=== PATIENT | female | born 1940 | race Caucasian/White ===

== ENCOUNTER → 2017-12-15 | Outpatient (CLI) | payer OTHER | LOC: CFH 08:40 | PROVIDERS: ATTEND Family Medicine | DX: R05 Cough (principal) | CPT/HCPCS: 71046 ==

== ENCOUNTER → 2018-03-15 | Outpatient (CLI) | payer OTHER | END | disposition home or self-care (01) | LOC: CFH 08:49 | PROVIDERS: ATTEND Internal Medicine Critical Care Medicine | DX: I71.2 Thoracic aortic aneurysm, without rupture (principal); I34.8 Other nonrheumatic mitral valve disorders | CPT/HCPCS: 71250 ==

== ENCOUNTER 2018-05-23 06:08 | Emergency (ER) | payer OTHER ==
[~2018-05-23] VITALS: Ht 160 cm; Wt 116.8 kg
[2018-05-23 07:02] LABS: BASOPHILS # (AUTO) 0.03 x10^3/uL (0-0.1); BASOPHILS % (AUTO) 0 % (0-1); EOSINOPHILS % (AUTO) 1 % (1-7); LYMPHOCYTES # (AUTO) 1.38 x10^3/uL (1-3.4); LYMPHOCYTES % (AUTO) 16 % (22-44); MD NO; MEAN CORPUSCULAR HGB CONC 32.8 g/dL (32.4-35.8); MEAN CORPUSCULAR VOLUME 91.4 fL (80-100); MEAN PLATELET VOLUME 9.8 fL (7.4-10.4); MONOCYTES # (AUTO) 0.66 x10^3/uL (0.2-0.8); MONOCYTES % (AUTO) 8 % (2-9); NEUTROPHILS # (AUTO) 6.57 x10^3/uL (1.8-6.8); NEUTROPHILS % (AUTO) 75 % (42-75); PLATELET COUNT 255 x10^3/uL (130-400); RED BLOOD COUNT 4.88 x10^6/uL (3.82-5.3); RED CELL DISTRIBUTION WIDTH 14.8 % (9.6-15.2)
[2018-05-23 07:10] VITALS: BP 147/81
[2018-05-23 07:14] LABS: ALANINE AMINOTRANSFERASE 27 U/L (12-78); ALBUMIN 3.7 g/dL (3.4-5.0); ANION GAP 8 mmol/L (5-15); CALCIUM 10.4 mg/dL (8.5-10.1); CHLORIDE 109 mmol/L (98-107)
[2018-05-23 07:24] LABS: ALKALINE PHOSPHATASE 56 U/L (45-117); BILIRUBIN,TOTAL 0.5 mg/dL (0.2-1.0); TOTAL PROTEIN 7.3 g/dL (6.4-8.2)
[2018-05-23] MEDS ORDERED: PINK LADY ENEMA 490 ML BOTTLE PR ONE (07:30)
== END 2018-05-23 08:30 | disposition home or self-care (01) ==
LOC: ED 08:23
DX: K59.00 Constipation, unspecified (principal); E66.9 Obesity, unspecified; Z88.2 Allergy status to sulfonamides
CPT/HCPCS: 36415; 74021; 80053; 84443; 85025; 99285

== ENCOUNTER 2018-07-07 17:39 | Inpatient (IN) | payer OTHER ==
[~2018-07-07] VITALS: Ht 160 cm; Wt 111.4 kg
[2018-07-07 18:22] LABS: BASOPHILS # (AUTO) 0.06 x10^3/uL (0-0.1); BASOPHILS % (AUTO) 1 % (0-1); EOSINOPHILS # (AUTO) 0.21 x10^3/uL (0-0.4); EOSINOPHILS % (AUTO) 2 % (1-7); LYMPHOCYTES # (AUTO) 1.78 x10^3/uL (1-3.4); LYMPHOCYTES % (AUTO) 16 % (22-44); MD NO; MEAN CORPUSCULAR HEMOGLOBIN 30.5 pg (27.0-34.8); MEAN CORPUSCULAR HGB CONC 33.3 g/dL (32.4-35.8); MEAN CORPUSCULAR VOLUME 91.7 fL (80-100); MEAN PLATELET VOLUME 10.1 fL (7.4-10.4); MONOCYTES # (AUTO) 0.99 x10^3/uL (0.2-0.8); MONOCYTES % (AUTO) 9 % (2-9); NEUTROPHILS # (AUTO) 8.28 x10^3/uL (1.8-6.8); NEUTROPHILS % (AUTO) 73 % (42-75); PLATELET COUNT 228 x10^3/uL (130-400); RED BLOOD COUNT 4.42 x10^6/uL (3.82-5.3); RED CELL DISTRIBUTION WIDTH 15.4 % (9.6-15.2)
[2018-07-07] MEDS ORDERED: ASPIRIN 81 MG TABLET CHEW PO ONE (18:30)
[2018-07-07] MEDS ORDERED: SODIUM CHLORIDE 0.9% 1,000ML IVBOLUS ONE (18:30)
[2018-07-07] MEDS ORDERED: ASPIRIN 81 MG TABLET CHEW ONE (18:31)
[2018-07-07 18:34] LABS: ALANINE AMINOTRANSFERASE 52 U/L (12-78); ALBUMIN 3.3 g/dL (3.4-5.0); ANION GAP 12 mmol/L (5-15); CALCIUM 10.2 mg/dL (8.5-10.1); CHLORIDE 105 mmol/L (98-107); CREATININE 2.06 mg/dL (0.55-1.02)
[2018-07-07 18:37] LABS: ALKALINE PHOSPHATASE 45 U/L (45-117); BILIRUBIN,TOTAL 0.6 mg/dL (0.2-1.0); TOTAL PROTEIN 6.4 g/dL (6.4-8.2); TROPONIN I 0.034 ng/mL (0.000-0.045)
[2018-07-07] MEDS ORDERED: CHOL200074 PO (19:41)
[2018-07-07] MEDS ORDERED: POLY17PO5 PO (19:41)
[2018-07-07] MEDS ORDERED: SERT25TA3 PO (19:41)
[2018-07-07] MEDS ORDERED: LISI40TA PO (19:41)
[2018-07-07] MEDS ORDERED: SENN1TAB8 PO (19:41)
[2018-07-07] MEDS ORDERED: MIRA25TA PO (19:41)
[2018-07-07] MEDS ORDERED: MULT-658 PO (19:41)
[2018-07-07] MEDS ORDERED: DOCU-131 PO (19:41)
[2018-07-07] MEDS ORDERED: RANI150C PO (19:41)
[2018-07-07] MEDS ORDERED: FLUT1DIS3 INH (19:41)
[2018-07-07] MEDS ORDERED: LEVO200T5 PO (19:41)
[2018-07-07] MEDS ORDERED: ACET325T14 PO (19:41)
[2018-07-07] MEDS ORDERED: AMOX875T PO (19:41)
[2018-07-07] MEDS ORDERED: LORA-445 PO (19:41)
[2018-07-07] MEDS ORDERED: AMLO2.5T3 PO (19:41)
[2018-07-07] MEDS ORDERED: METF500T17 PO (19:41)
[2018-07-07] MEDS ORDERED: HYDR25TA6 PO (19:41)
[2018-07-07] MEDS ORDERED: FURO-93 PO (19:41)
[2018-07-07 20:36] LABS: MICROSCOPIC INDICATED
[2018-07-07 20:45] LABS: CULTURE INDICATED? YES
[2018-07-07] MEDS ORDERED: CEFTRIAXONE PMX 1GM/50ML 50 ML ONE (21:18)
[2018-07-07] MEDS ORDERED: LORazepam 0.5MG TABLET ONE (21:24)
[2018-07-07] MEDS ORDERED: CEFTRIAXONE 1,000 MG IV ONE (21:30)
[2018-07-07] MEDS ORDERED: LORazepam 0.5MG TABLET PO ONE (21:30)
[2018-07-07] MEDS ORDERED: CEFTRIAXONE 1,000 MG in SODIUM CHLORIDE 0.9% 50 ML IVPB ONE (21:30)
[2018-07-07] MEDS ORDERED: ONDANSETRON 2MG/ML, 2ML IVPush PRN (22:00)
[2018-07-07] MEDS ORDERED: POTASSIUM CHLORIDE 20 MEQ TAB.ER.PRT PO ONE (22:00)
[2018-07-07] MEDS ORDERED: BISACODYL 10 MG SUPP PR PRN (22:00)
[2018-07-07] MEDS ORDERED: hydrALAzine 20 MG/ML, 1ML IVPush PRN (22:00)
[2018-07-07] MEDS ORDERED: ACETAMINOPHEN 325 MG TABLET PO PRN (22:00)
[2018-07-07] MEDS ORDERED: POLYETHYLENE GLYCOL 17 GM PACKET PO PRN (22:00)
[2018-07-07] MEDS: INSULIN LISPRO 100 UNITS/ML, PEN SQ-INSULIN SCH (22:17)
[2018-07-07 22:19] LABS: HEMOGLOBIN A1C 6.9 % (4.2-6.3)
[2018-07-07] MEDS: CEFTRIAXONE 1,000 MG in SODIUM CHLORIDE 0.9% 50 ML IV SCH (22:40)
[2018-07-07] MEDS: HEPARIN 5,000 UNITS/ML, 1ML SQ SCH (22:40)
[2018-07-07] MEDS: AMLODIPINE 2.5 MG TABLET PO SCH (22:41)
[2018-07-07] MEDS: NS + 20MEQ KCL 1,000 ML IV SCH (22:41)
[2018-07-07] MEDS: FAMOTIDINE 20 MG TABLET PO SCH (22:43)
[2018-07-08 00:48] VITALS: BP 115/62
[2018-07-08 06:13] LABS: BASOPHILS # (AUTO) 0.04 x10^3/uL (0-0.1); BASOPHILS % (AUTO) 1 % (0-1); EOSINOPHILS # (AUTO) 0.29 x10^3/uL (0-0.4); EOSINOPHILS % (AUTO) 3 % (1-7); LYMPHOCYTES # (AUTO) 1.41 x10^3/uL (1-3.4); LYMPHOCYTES % (AUTO) 17 % (22-44); MD NO; MEAN CORPUSCULAR HEMOGLOBIN 30.8 pg (27.0-34.8); MEAN CORPUSCULAR HGB CONC 33.5 g/dL (32.4-35.8); MEAN CORPUSCULAR VOLUME 92.1 fL (80-100); MEAN PLATELET VOLUME 10.4 fL (7.4-10.4); MONOCYTES # (AUTO) 0.86 x10^3/uL (0.2-0.8); MONOCYTES % (AUTO) 10 % (2-9); NEUTROPHILS # (AUTO) 5.82 x10^3/uL (1.8-6.8); NEUTROPHILS % (AUTO) 69 % (42-75); PLATELET COUNT 191 x10^3/uL (130-400); RED BLOOD COUNT 4.23 x10^6/uL (3.82-5.3); RED CELL DISTRIBUTION WIDTH 15.7 % (9.6-15.2)
[2018-07-08 06:15] LABS: ALANINE AMINOTRANSFERASE 48 U/L (12-78); ANION GAP 10 mmol/L (5-15); CALCIUM 9.8 mg/dL (8.5-10.1); CHLORIDE 110 mmol/L (98-107)
[2018-07-08 06:17] LABS: ALKALINE PHOSPHATASE 44 U/L (45-117); BILIRUBIN,TOTAL 0.3 mg/dL (0.2-1.0); TOTAL PROTEIN 6.2 g/dL (6.4-8.2)
[2018-07-08] MEDS: NS + 20MEQ KCL 1,000 ML IV SCH ×2 (06:20→20:38)
[2018-07-08] MEDS: HEPARIN 5,000 UNITS/ML, 1ML SQ SCH ×3 (06:20→21:54)
[2018-07-08] MEDS: ASPIRIN 81 MG TABLET EC PO SCH (06:20)
[2018-07-08 06:48] VITALS: BP 132/90
[2018-07-08] MEDS: INSULIN LISPRO 100 UNITS/ML, PEN SQ-INSULIN SCH ×4 (07:00→20:44)
[2018-07-08] MEDS: SENNA/DOCUSATE TABLET PO SCH (09:00)
[2018-07-08] MEDS: TEMPLATE NON-FORMULARY MED. (Mirabegron** (Myrbetriq**) 25 MG) PO SCH (09:00)
[2018-07-08] MEDS: FLUTICASONE/VILANTEROL 100-25MCG/INH INH SCH (09:00)
[2018-07-08] MEDS: FAMOTIDINE 20 MG TABLET PO SCH ×2 (11:22→20:47)
[2018-07-08] MEDS: MULTIVITAMIN 1 TABLET PO SCH (11:22)
[2018-07-08] MEDS: SERTRALINE 50MG TABLET PO SCH (11:23)
[2018-07-08] MEDS: CHOLECALCIFEROL 1,000 UNIT TABLET PO SCH (11:23)
[2018-07-08] MEDS: LEVOTHYROXINE 200 MCG TABLET PO SCH (11:23)
[2018-07-08 15:00] VITALS: BP 142/74
[2018-07-08] MEDS: HALOPERIDOL 5 MG TABLET PO PRN (16:48)
[2018-07-08 20:13] VITALS: BP 117/59
[2018-07-08] MEDS: AMLODIPINE 2.5 MG TABLET PO SCH (20:47)
[2018-07-08] MEDS: CEFTRIAXONE 1,000 MG in SODIUM CHLORIDE 0.9% 50 ML IV SCH (21:53)
[2018-07-09 00:53] VITALS: BP 111/66
[2018-07-09] MEDS: NS + 20MEQ KCL 1,000 ML IV SCH ×3 (05:15→20:38)
[2018-07-09] MEDS: LEVOTHYROXINE 200 MCG TABLET PO SCH (05:23)
[2018-07-09] MEDS: HEPARIN 5,000 UNITS/ML, 1ML SQ SCH ×3 (05:23→22:30)
[2018-07-09] MEDS: ASPIRIN 81 MG TABLET EC PO SCH (05:24)
[2018-07-09] MEDS: INSULIN LISPRO 100 UNITS/ML, PEN SQ-INSULIN SCH ×4 (07:00→20:09)
[2018-07-09 07:11] VITALS: BP 147/75
[2018-07-09] MEDS: TEMPLATE NON-FORMULARY MED. (Mirabegron** (Myrbetriq**) 25 MG) PO SCH (08:01)
[2018-07-09] MEDS: CHOLECALCIFEROL 1,000 UNIT TABLET PO SCH (08:44)
[2018-07-09] MEDS: FAMOTIDINE 20 MG TABLET PO SCH ×2 (08:44→20:38)
[2018-07-09] MEDS: MULTIVITAMIN 1 TABLET PO SCH (08:44)
[2018-07-09] MEDS: SENNA/DOCUSATE TABLET PO SCH (08:44)
[2018-07-09] MEDS: SERTRALINE 50MG TABLET PO SCH (08:48)
[2018-07-09] MEDS: FLUTICASONE/VILANTEROL 100-25MCG/INH INH SCH (08:52)
[2018-07-09 12:14] VITALS: BP 131/73
[2018-07-09 19:24] VITALS: BP 136/75
[2018-07-09] MEDS: HALOPERIDOL 5 MG TABLET PO PRN (20:38)
[2018-07-09] MEDS: AMLODIPINE 2.5 MG TABLET PO SCH (20:38)
[2018-07-09] MEDS ORDERED: LORazepam 1MG TABLET ONE (22:56)
[2018-07-09] MEDS ORDERED: LORazepam 1MG TABLET PO ONE (23:00)
[2018-07-10 01:25] VITALS: BP 154/83
[2018-07-10] MEDS: HALOPERIDOL 5 MG TABLET PO PRN ×3 (02:03→22:01)
[2018-07-10] MEDS: NS + 20MEQ KCL 1,000 ML IV SCH ×3 (04:38→19:10)
[2018-07-10] MEDS: HEPARIN 5,000 UNITS/ML, 1ML SQ SCH ×3 (05:17→19:10)
[2018-07-10] MEDS: ASPIRIN 81 MG TABLET EC PO SCH (05:17)
[2018-07-10] MEDS: LEVOTHYROXINE 200 MCG TABLET PO SCH (05:17)
[2018-07-10 07:06] VITALS: BP 166/89
[2018-07-10] MEDS: INSULIN LISPRO 100 UNITS/ML, PEN SQ-INSULIN SCH ×4 (08:11→19:45)
[2018-07-10] MEDS: TEMPLATE NON-FORMULARY MED. (Mirabegron** (Myrbetriq**) 25 MG) PO SCH (08:11)
[2018-07-10] MEDS: FLUTICASONE/VILANTEROL 100-25MCG/INH INH SCH (08:11)
[2018-07-10] MEDS: CHOLECALCIFEROL 1,000 UNIT TABLET PO SCH (08:18)
[2018-07-10] MEDS: SENNA/DOCUSATE TABLET PO SCH (08:18)
[2018-07-10] MEDS: LEVOFLOXACIN 750 MG TABLET PO SCH (08:18)
[2018-07-10] MEDS: MULTIVITAMIN 1 TABLET PO SCH (08:18)
[2018-07-10] MEDS: SERTRALINE 50MG TABLET PO SCH (08:18)
[2018-07-10] MEDS: FAMOTIDINE 20 MG TABLET PO SCH ×2 (08:18→19:45)
[2018-07-10 12:29] VITALS: BP 161/79
[2018-07-10] MEDS: LORazepam 0.5MG TABLET PO PRN ×2 (13:20→19:45)
[2018-07-10 19:25] VITALS: BP 151/80
[2018-07-10] MEDS: AMLODIPINE 2.5 MG TABLET PO SCH (19:45)
[2018-07-11] MEDS: NS + 20MEQ KCL 1,000 ML IV SCH ×2 (02:28→21:30)
[2018-07-11 03:37] VITALS: BP 149/85
[2018-07-11] MEDS: ASPIRIN 81 MG TABLET EC PO SCH (05:05)
[2018-07-11] MEDS: LEVOTHYROXINE 200 MCG TABLET PO SCH (05:05)
[2018-07-11] MEDS: HEPARIN 5,000 UNITS/ML, 1ML SQ SCH ×3 (05:08→21:29)
[2018-07-11 07:01] VITALS: BP 147/55
[2018-07-11] MEDS: SERTRALINE 50MG TABLET PO SCH (08:09)
[2018-07-11] MEDS: CHOLECALCIFEROL 1,000 UNIT TABLET PO SCH (08:09)
[2018-07-11] MEDS: FAMOTIDINE 20 MG TABLET PO SCH ×2 (08:09→21:29)
[2018-07-11] MEDS: LEVOFLOXACIN 750 MG TABLET PO SCH (08:09)
[2018-07-11] MEDS: MULTIVITAMIN 1 TABLET PO SCH (08:09)
[2018-07-11] MEDS: FLUTICASONE/VILANTEROL 100-25MCG/INH INH SCH (08:10)
[2018-07-11] MEDS: TEMPLATE NON-FORMULARY MED. (Mirabegron** (Myrbetriq**) 25 MG) PO SCH (08:10)
[2018-07-11] MEDS: SENNA/DOCUSATE TABLET PO SCH (08:10)
[2018-07-11] MEDS: INSULIN LISPRO 100 UNITS/ML, PEN SQ-INSULIN SCH ×4 (08:13→21:00)
[2018-07-11 09:26] LABS: ANION GAP 9 mmol/L (5-15); CALCIUM 9.7 mg/dL (8.5-10.1); CHLORIDE 109 mmol/L (98-107); CREATININE 0.88 mg/dL (0.55-1.02)
[2018-07-11 09:39] LABS: BASOPHILS # (AUTO) 0.04 x10^3/uL (0-0.1); BASOPHILS % (AUTO) 0 % (0-1); EOSINOPHILS # (AUTO) 0.13 x10^3/uL (0-0.4); EOSINOPHILS % (AUTO) 1 % (1-7); LYMPHOCYTES # (AUTO) 0.89 x10^3/uL (1-3.4); LYMPHOCYTES % (AUTO) 9 % (22-44); MD NO; MEAN CORPUSCULAR HEMOGLOBIN 30.5 pg (27.0-34.8); MEAN CORPUSCULAR HGB CONC 33.2 g/dL (32.4-35.8); MEAN CORPUSCULAR VOLUME 91.7 fL (80-100); MEAN PLATELET VOLUME 10.3 fL (7.4-10.4); MONOCYTES # (AUTO) 0.53 x10^3/uL (0.2-0.8); MONOCYTES % (AUTO) 5 % (2-9); NEUTROPHILS # (AUTO) 8.93 x10^3/uL (1.8-6.8); NEUTROPHILS % (AUTO) 85 % (42-75); PLATELET COUNT 198 x10^3/uL (130-400); RED BLOOD COUNT 4.44 x10^6/uL (3.82-5.3); RED CELL DISTRIBUTION WIDTH 15.4 % (9.6-15.2)
[2018-07-11] MEDS ORDERED: MAGNESIUM SULFATE 4 GM in SODIUM CHLORIDE 0.9% 100 ML IV ONE (12:00)
[2018-07-11 15:06] VITALS: BP 150/74
[2018-07-11] MEDS: LORazepam 0.5MG TABLET PO PRN ×2 (16:14→21:29)
[2018-07-11 19:40] VITALS: BP 132/77
[2018-07-11 20:24] LABS: TROPONIN I 0.018 ng/mL (0.000-0.045)
[2018-07-11] MEDS: AMLODIPINE 2.5 MG TABLET PO SCH (21:29)
[2018-07-12 01:17] VITALS: BP 129/82
[2018-07-12 01:25] VITALS: BP 129/82
[2018-07-12] MEDS: LORazepam 0.5MG TABLET PO PRN ×3 (01:57→22:26)
[2018-07-12 04:01] LABS: TROPONIN I 0.016 ng/mL (0.000-0.045)
[2018-07-12] MEDS: LEVOTHYROXINE 200 MCG TABLET PO SCH (05:27)
[2018-07-12] MEDS: ASPIRIN 81 MG TABLET EC PO SCH (05:27)
[2018-07-12] MEDS: NS + 20MEQ KCL 1,000 ML IV SCH ×3 (05:27→21:30)
[2018-07-12] MEDS: HEPARIN 5,000 UNITS/ML, 1ML SQ SCH ×3 (05:27→22:28)
[2018-07-12 06:50] VITALS: BP 155/77
[2018-07-12] MEDS: INSULIN LISPRO 100 UNITS/ML, PEN SQ-INSULIN SCH ×4 (07:00→21:00)
[2018-07-12] MEDS: TEMPLATE NON-FORMULARY MED. (Mirabegron** (Myrbetriq**) 25 MG) PO SCH (09:00)
[2018-07-12] MEDS ORDERED: POTASSIUM CHLORIDE 20 MEQ TAB.ER.PRT PO ONE (09:00)
[2018-07-12] MEDS ORDERED: FUROSEMIDE 40 MG/4 ML IV ONE (09:00)
[2018-07-12] MEDS: SENNA/DOCUSATE TABLET PO SCH (09:09)
[2018-07-12] MEDS: MULTIVITAMIN 1 TABLET PO SCH (09:09)
[2018-07-12] MEDS: FAMOTIDINE 20 MG TABLET PO SCH ×2 (09:09→22:28)
[2018-07-12] MEDS: LEVOFLOXACIN 750 MG TABLET PO SCH (09:10)
[2018-07-12] MEDS: CHOLECALCIFEROL 1,000 UNIT TABLET PO SCH (09:10)
[2018-07-12] MEDS: SERTRALINE 50MG TABLET PO SCH (09:10)
[2018-07-12] MEDS ORDERED: ALBUTEROL SULFATE 2.5 MG/3 ML ONE (09:25)
[2018-07-12] MEDS ORDERED: ALBUTEROL SULFATE 2.5 MG/3 ML NPPB PRN (10:00)
[2018-07-12 11:17] LABS: TROPONIN I < 0.015 ng/mL (0.000-0.045)
[2018-07-12] MEDS: FLUTICASONE/VILANTEROL 100-25MCG/INH INH SCH (12:03)
[2018-07-12] MEDS: HYDROCHLOROTHIAZIDE 25 MG TABLET PO SCH (12:03)
[2018-07-12] MEDS: metFORMIN 500 MG TABLET PO SCH ×2 (12:04→22:27)
[2018-07-12] MEDS: LISINOPRIL 20 MG TABLET PO SCH ×2 (12:04→22:27)
[2018-07-12 13:27] VITALS: BP 160/78
[2018-07-12 19:12] VITALS: BP 122/70
[2018-07-12] MEDS: AMLODIPINE 2.5 MG TABLET PO SCH (22:26)
[2018-07-13 02:25] VITALS: BP 140/96
[2018-07-13] MEDS: NS + 20MEQ KCL 1,000 ML IV SCH (04:52)
[2018-07-13 05:19] LABS: BASOPHILS # (AUTO) 0.03 x10^3/uL (0-0.1); BASOPHILS % (AUTO) 0 % (0-1); EOSINOPHILS # (AUTO) 0.23 x10^3/uL (0-0.4); EOSINOPHILS % (AUTO) 2 % (1-7); LYMPHOCYTES # (AUTO) 0.91 x10^3/uL (1-3.4); LYMPHOCYTES % (AUTO) 8 % (22-44); MD NO; MEAN CORPUSCULAR HEMOGLOBIN 30.4 pg (27.0-34.8); MEAN CORPUSCULAR HGB CONC 33.2 g/dL (32.4-35.8); MEAN CORPUSCULAR VOLUME 91.4 fL (80-100); MEAN PLATELET VOLUME 10.1 fL (7.4-10.4); MONOCYTES # (AUTO) 0.83 x10^3/uL (0.2-0.8); MONOCYTES % (AUTO) 7 % (2-9); NEUTROPHILS # (AUTO) 9.39 x10^3/uL (1.8-6.8); NEUTROPHILS % (AUTO) 82 % (42-75); PLATELET COUNT 181 x10^3/uL (130-400); RED BLOOD COUNT 4.39 x10^6/uL (3.82-5.3); RED CELL DISTRIBUTION WIDTH 15.6 % (9.6-15.2)
[2018-07-13 05:22] LABS: CHLORIDE 106 mmol/L (98-107)
[2018-07-13 05:25] LABS: ANION GAP 9 mmol/L (5-15); CALCIUM 9.2 mg/dL (8.5-10.1); CREATININE 0.98 mg/dL (0.55-1.02)
[2018-07-13] MEDS: ASPIRIN 81 MG TABLET EC PO SCH (06:02)
[2018-07-13] MEDS: HEPARIN 5,000 UNITS/ML, 1ML SQ SCH ×3 (06:02→23:38)
[2018-07-13] MEDS: LEVOTHYROXINE 200 MCG TABLET PO SCH (06:02)
[2018-07-13] MEDS: INSULIN LISPRO 100 UNITS/ML, PEN SQ-INSULIN SCH ×4 (07:00→21:00)
[2018-07-13 07:30] VITALS: BP 143/76
[2018-07-13] MEDS: SENNA/DOCUSATE TABLET PO SCH (07:40)
[2018-07-13] MEDS: FLUTICASONE/VILANTEROL 100-25MCG/INH INH SCH (07:40)
[2018-07-13] MEDS: MULTIVITAMIN 1 TABLET PO SCH (07:40)
[2018-07-13] MEDS: CHOLECALCIFEROL 1,000 UNIT TABLET PO SCH (07:41)
[2018-07-13] MEDS: LISINOPRIL 20 MG TABLET PO SCH ×2 (07:41→23:39)
[2018-07-13] MEDS: SERTRALINE 50MG TABLET PO SCH (07:41)
[2018-07-13] MEDS: LEVOFLOXACIN 750 MG TABLET PO SCH (07:41)
[2018-07-13] MEDS: HYDROCHLOROTHIAZIDE 25 MG TABLET PO SCH (07:41)
[2018-07-13] MEDS: FAMOTIDINE 20 MG TABLET PO SCH ×2 (07:41→23:39)
[2018-07-13] MEDS: TEMPLATE NON-FORMULARY MED. (Mirabegron** (Myrbetriq**) 25 MG) PO SCH (07:42)
[2018-07-13] MEDS: metFORMIN 500 MG TABLET PO SCH ×2 (07:42→23:39)
[2018-07-13] MEDS ORDERED: MAGNESIUM SULFATE PMX 2GM/50ML 50 ML IV ONE ×2 (08:00→12:00)
[2018-07-13] MEDS: CEPHALEXIN 500 MG CAPSULE PO SCH ×2 (08:44→23:39)
[2018-07-13] MEDS: MAGNESIUM CHLORIDE 64 MG TABLET.DR PO SCH ×2 (08:44→23:39)
[2018-07-13 12:03] VITALS: BP 137/78
[2018-07-13] MEDS ORDERED: ASPI-621 PO (13:28)
[2018-07-13] MEDS ORDERED: Magnesium Chloride PO (13:28)
[2018-07-13] MEDS ORDERED: ALBU2.5V NPPB (13:28)
[2018-07-13] MEDS ORDERED: CEPH-376 PO (13:28)
[2018-07-13 18:38] VITALS: BP 124/77
[2018-07-13] MEDS: AMLODIPINE 2.5 MG TABLET PO SCH (23:39)
[2018-07-14 01:08] VITALS: BP 129/72
[2018-07-14] MEDS: ASPIRIN 81 MG TABLET EC PO SCH (06:33)
[2018-07-14] MEDS: LEVOTHYROXINE 200 MCG TABLET PO SCH (06:33)
[2018-07-14] MEDS: INSULIN LISPRO 100 UNITS/ML, PEN SQ-INSULIN SCH ×2 (07:00→11:00)
[2018-07-14] MEDS: TEMPLATE NON-FORMULARY MED. (Mirabegron** (Myrbetriq**) 25 MG) PO SCH (07:13)
[2018-07-14 07:18] VITALS: BP 149/75
[2018-07-14] MEDS: MULTIVITAMIN 1 TABLET PO SCH (07:43)
[2018-07-14] MEDS: HEPARIN 5,000 UNITS/ML, 1ML SQ SCH (07:43)
[2018-07-14] MEDS: CEPHALEXIN 500 MG CAPSULE PO SCH (07:43)
[2018-07-14] MEDS: FLUTICASONE/VILANTEROL 100-25MCG/INH INH SCH (07:43)
[2018-07-14] MEDS: metFORMIN 500 MG TABLET PO SCH (07:43)
[2018-07-14] MEDS: FAMOTIDINE 20 MG TABLET PO SCH (07:44)
[2018-07-14] MEDS: HYDROCHLOROTHIAZIDE 25 MG TABLET PO SCH (07:44)
[2018-07-14] MEDS: CHOLECALCIFEROL 1,000 UNIT TABLET PO SCH (07:44)
[2018-07-14] MEDS: SERTRALINE 50MG TABLET PO SCH (07:44)
[2018-07-14] MEDS: LISINOPRIL 20 MG TABLET PO SCH (07:44)
[2018-07-14] MEDS: MAGNESIUM CHLORIDE 64 MG TABLET.DR PO SCH (07:44)
[2018-07-14] MEDS: SENNA/DOCUSATE TABLET PO SCH (07:45)
[2018-07-14] MEDS ORDERED: MAGNESIUM SULFATE PMX 2GM/50ML 50 ML IV ONE (09:30)
== END 2018-07-14 14:18 | DRG 682 ==
LOC: ED 19:56 → EDIP 21:12 → 3NE 21:52
PROVIDERS: ADMIT Internal Medicine; ATTEND Internal Medicine
PROC: 0T9B70Z Drainage of Bladder with Drainage Device, Via Natural or Artificial Opening (ICD-10-PCS; principal; 2018-07-07)
DX: N17.9 Acute kidney failure, unspecified (principal); G93.40 Encephalopathy, unspecified; E44.1 Mild protein-calorie malnutrition; Z68.42 Body mass index [BMI] 45.0-49.9, adult; J98.11 Atelectasis; B96.1 Klebsiella pneumoniae [K. pneumoniae] as the cause of diseases classified elsewhere; E03.9 Hypothyroidism, unspecified; E11.9 Type 2 diabetes mellitus without complications; E66.01 Morbid (severe) obesity due to excess calories; E86.0 Dehydration; E87.6 Hypokalemia; F32.9 Major depressive disorder, single episode, unspecified; Z60.2 Problems related to living alone; R29.6 Repeated falls; M16.11 Unilateral primary osteoarthritis, right hip; G47.33 Obstructive sleep apnea (adult) (pediatric); F41.9 Anxiety disorder, unspecified; I10 Essential (primary) hypertension; I95.9 Hypotension, unspecified; K21.9 Gastro-esophageal reflux disease without esophagitis; M19.90 Unspecified osteoarthritis, unspecified site; N30.90 Cystitis, unspecified without hematuria; Z79.82 Long term (current) use of aspirin; Z79.84 Long term (current) use of oral hypoglycemic drugs; Z79.899 Other long term (current) drug therapy; Z86.73 Personal history of transient ischemic attack (TIA), and cerebral infarction without residual deficits; Z88.2 Allergy status to sulfonamides; Z90.49 Acquired absence of other specified parts of digestive tract
CPT/HCPCS: 36415; 70450; 71045; 80048; 80053; 81001; 82140; 82436; 82570; 82962; 83036; 83735; 83880; 84100; 84133; 84300; 84443; 84484; 85025; 87077; 87086; 87186; 93005; 96361; 96374; 99285; G0378; J0696; J1644; J1940; J3475; J3480; 92523-GN; J1815; J7030